=== PATIENT | male | born 1960 | race Two or more races ===

== ENCOUNTER 2018-04-24 21:04 | Emergency (ER) | payer OTHER ==
--- NOTE | 2018-04-24 21:22 | PDOC ---
Rapid Medical Evaluation Chief Complaint: Laceration Time Seen by Provider: 04/24/18 21:18 Medical Evaluation: 04/24/18 21:18 57 year old male with left index finger laceration. sustained cut with a saw that cut cement last tetanus unknown. PE: patient alert ox3. full rom. + sensation to distal end of finger. ~ irregular laceration to PIP. Plan: patient to the ER. xray. tetanus 04/24/18 21:21 Discharge Disposition - Diagnosis Laceration of index finger Qualifiers: Encounter type: initial encounter Damage to nail status: without damage Foreign body presence: without foreign body Laterality: left Qualified Code(s): S61.211A - Laceration without foreign body of left index finger without damage to nail, initial encounter - Referrals - Patient Instructions - Post Discharge Activity
[2018-04-24 21:24] VITALS: BP 159/78; PULSE 79; TEMP 98.4; BMI 27.1
[2018-04-24] MEDS ORDERED: TETANUS AND DIPHTHERIA TOXOID 0.5 ML DISP.SYRIN IM ONE (21:30)
[2018-04-24] MEDS ORDERED: IBUPROFEN 600 MG TABLET (FP) PO ONE ×2 (22:26→22:50)
[2018-04-24] MEDS ORDERED: AMOX TR/POT CLAV 875MG/125MG TABLETS (FP) ONE ×2 (22:46→23:02)
--- NOTE | 2018-04-24 23:00 | PDOC ---
History of Present Illness - General Chief Complaint: Laceration Stated Complaint: LACERATION TO FINGER Time Seen by Provider: 04/24/18 21:18 History Source: Patient Exam Limitations: No Limitations - History of Present Illness Initial Comments: 04/24/18 22:25 Patient came for evaluation of left finger/index finger laceration sustained on a power drill. Occurred: reports: just prior to arrival Severity: reports: mild Pain Location: reports: upper extremity (index finger) Method of Injury: Yes: direct blow Associated Symptoms (Fall): denies symptoms Past History - Travel Traveled outside of the country in the last 30 days: No Close contact w/someone who was outside of country & ill: No - Past Medical History Allergies/Adverse Reactions: Allergies Allergy/AdvReac Type Severity Reaction Status Date / Time No Known Allergies Allergy Verified 04/24/18 21:24 Home Medications: Ambulatory Orders NK [No Known Home Medication] 04/24/18 COPD: No - Suicide/Smoking/Psychosocial Hx Smoking History: Never smoked Have you smoked in the past 12 months: No Information on smoking cessation initiated: No Hx Alcohol Use: No Drug/Substance Use Hx: No Substance Use Type: None Review of Systems - Review of Systems Able to Perform ROS?: Yes Is the patient limited Lithuanian proficient: Yes Constitutional: Yes: Symptoms Reported, See HPI HEENTM: No: Symptoms Reported Musculoskeletal: Yes: Symptoms Reported, See HPI, Joint Pain Integumentary: Yes: Symptoms Reported Neurological: Yes: Symptoms reported, See HPI. No: Numbness All Other Systems: Reviewed and Negative *Physical Exam - Vital Signs Last Vital Signs Temp Pulse Resp BP Pulse Ox 98.4 F 79 18 159/78 100 04/24/18 21:21 04/24/18 21:21 04/24/18 21:21 04/24/18 21:21 04/24/18 21:21 - Physical Exam General Appearance: Yes: Nourished, Appropriately Dressed, Apparent Distress, Mild Distress HEENT: positive: PIPE, Normal ENT Inspection, TMs Normal, Pharynx Normal Neck: positive: Supple Musculoskeletal: positive: Normal Inspection Extremity: positive: Normal Capillary Refill, Normal Range of Motion Integumentary: positive: Normal Color, Other (3cm laceration to dorsum of left index finger across PIP. Range of motion is intact with strong flexion and extension against resistance and sensation is intact distal to injury.) Neurologic: positive: oxygen tank filler II-XII NML intact, Fully Oriented, Alert, Normal Mood/ Affect, Normal Response, Motor Strength 5/5 Procedures - Laceration/Wound Repair Left Finger Wound Length: 2.6 to 5.0 cm Wound Explored: contaminated Wound's Depth, Shape: superficial, linear, stellate, contused tissue Irrigated w/ Saline: Yes Betadine Prep: Yes Anesthesia: 1% Lidocaine Wound Repaired With: Sutures Suture Size/Type: 5:0, nylon Number of Sutures: 8 Layer Closure: No Splint Applied: Yes Progress: 04/24/18 23:14 Laceration is stellate and deep with noted bone at the PIP joint and shredded tissue that appears tendon-like. Bleeding is nonpulsatile. Sutured closed, splinted. 04/24/18 23:14 ED Treatment Course - Medications Given in the ED: ED Medications Discontinued Medications Generic Name Dose Route Start Last Admin Trade Name Freq PRN Reason Stop Dose Admin Tetanus/Diphtheria Toxoids Adsorbed 0.5 ml 04/24/18 21:30 04/24/18 22:21 Decavac IM 04/24/18 21:31 0.5 ml .ONCE ONE Administration Progress Note - Progress Note Progress Note: Deep finger laceration with grinding machine with obvious structural damage to finger. Case was discussed with Dr. Daniel Stone who will see the patient tomorrow in ER and organize probable surgical evaluation ,cleaning and repair. This was discussed with daughter who translated all of the plan with father understands to be NPO-nothing by mouth after midnight, will take Percocet for pain relief tonight, and additional Augmentin and Percocet tablet in the morning and then nothing by mouth to return to this emergency Department around 10 AM for further evaluation. *DC/Admit/Observation/Transfer Diagnosis at time of Disposition: Laceration of index finger Qualifiers: Encounter type: initial encounter Damage to nail status: without damage Foreign body presence: without foreign body Laterality: left Qualified Code(s): S61.211A - Laceration without foreign body of left index finger without damage to nail, initial encounter - Discharge Dispostion Disposition: HOME Condition at time of disposition: Stable Decision to Admit order: No - Referrals Referrals: Tunde Pena MD [Primary Care Provider] - Daniel Brown MD [Staff Physician] - - Patient Instructions Printed Discharge Instructions: DI for Laceration Repair Additional Instructions: Rest, elevate, avoid strenuous activity or heavy lifting until cleared Hand elevated, keep clean and dry, do not change dressing Take Augmentin in AM -7AM Take Percocet tab in AM- 7AM, with small sips of water NOTHING TO EAT OR DRINK AFTER MIDNIGHT Return to the emergency department tomorrow morning at 9:30/10 AM for reevaluation by Dr. Brown That ER admission will be to workup for outpatient surgery for evaluation and surgical cleaning of finger laceration. Please have Dr. Brown paged upon arrival and he will direct plan and orders as necessary - Post Discharge Activity Forms/Work/School Notes: Back to Work
[2018-04-24] MEDS ORDERED: AMOX TR/POT CLAV 875MG/125MG TABLETS (FP) PO ONE (23:10)
== END 2018-04-24 23:12 | disposition home or self-care (01) ==
LOC: JERFT 21:04
PROC: 0JQK0ZZ Repair Left Hand Subcutaneous Tissue and Fascia, Open Approach (ICD-10-PCS; principal; 2018-04-24)
PROC: 3E0234Z Introduction of Serum, Toxoid and Vaccine into Muscle, Percutaneous Approach (ICD-10-PCS; 2018-04-24)
DX: S61.211A Laceration without foreign body of left index finger without damage to nail, initial encounter (principal); W29.8XXA Contact with other powered hand tools and household machinery, initial encounter; Y93.89 Activity, other specified; Y92.89 Other specified places as the place of occurrence of the external cause; Y99.8 Other external cause status
CPT/HCPCS: 73140-TC-LT-FY; 99281-25

== ENCOUNTER 2018-04-25 10:59 | Day surgery (SDC) | payer OTHER ==
[2018-04-25 11:11] VITALS: BMI 26.8
--- NOTE | 2018-04-25 12:17 | PDOC ---
History of Present Illness - General Chief Complaint: Revisit,Wound Recheck Stated Complaint: SUTURE REMOVAL Time Seen by Provider: 04/25/18 11:20 History Source: Patient Exam Limitations: No Limitations - History of Present Illness Initial Comments: 04/25/18 12:16 pt here for follow up to see . Pt sustained laceration to index finger seen in ER last night. Pt has been NPO since midnight states pt. Past History - Past Medical History Allergies/Adverse Reactions: Allergies Allergy/AdvReac Type Severity Reaction Status Date / Time No Known Allergies Allergy Verified 04/25/18 11:06 Home Medications: Ambulatory Orders NK [No Known Home Medication] 04/24/18 COPD: No Other medical history: DENIES. - Suicide/Smoking/Psychosocial Hx Smoking History: Never smoked Have you smoked in the past 12 months: No Hx Alcohol Use: No Drug/Substance Use Hx: No Substance Use Type: None *Physical Exam - Vital Signs Last Vital Signs Temp Pulse Resp BP Pulse Ox 97.4 F L 62 19 119/77 100 04/25/18 11:06 04/25/18 11:06 04/25/18 11:06 04/25/18 11:06 04/25/18 11:06 - Physical Exam General Appearance: Yes: Nourished, Appropriately Dressed HEENT: positive: EOMI, PIPE Extremity: positive: Normal Capillary Refill, Other (left index finger with sutures intact, linear over the dorsal aspect of finger) Integumentary: positive: Normal Color, Dry, Warm Neurologic: positive: Fully Oriented, Alert, Normal Mood/Affect, Normal Response , Motor Strength 5/5 Medical Decision Making - Medical Decision Making 04/25/18 12:37 cc: wound check pt seen by in fast track plan to admit to [facility] for finger laceration repair cbc/cmp done as per pt given understands the plan of care given in faroese translation *DC/Admit/Observation/Transfer Diagnosis at time of Disposition: Laceration of index finger Qualifiers: Encounter type: subsequent encounter Damage to nail status: without damage Foreign body presence: without foreign body Laterality: left Qualified Code(s): S61.211D - Laceration without foreign body of left index finger without damage to nail, subsequent encounter - Discharge Dispostion Decision to Admit order: Yes - Referrals - Patient Instructions - Post Discharge Activity
[2018-04-25 12:39] LABS: HEMATOCRIT 45.4 % (35.4-49); HEMOGLOBIN 15.1 GM/dL (11.7-16.9); MCH 30.1 pg (25.7-33.7); MCHC 33.4 g/dl (32.0-35.9); MEAN CELL VOLUME 90.1 fl (80-96); MEAN PLT VOLUME 8.4 fl (7.5-11.1); PLATELET COUNT 201 K/MM3 (134-434); RBC 5.04 M/mm3 (4.00-5.60); RDW 13.2 % (11.9-15.9); WHITE BLOOD COUNT 8.4 K/mm3 (4.0-10.0)
[2018-04-25 12:58] LABS: ALBUMIN 3.9 g/dl (3.4-5.0); ANION GAP 7 (8-16); BLOOD UREA NITROGEN 18 mg/dL (7-18); CALCIUM 8.8 mg/dL (8.5-10.1); CHLORIDE 100 mmol/L (98-107); CO2 29 mmol/L (21-32); GLUCOSE,RANDOM 147 mg/dL (74-106); POTASSIUM 4.6 mmol/L (3.5-5.1); SGPT/ALT 46 U/L (12-78); SODIUM 136 mmol/L (136-145)
[2018-04-25 13:04] LABS: ALK PHOS 114 U/L (45-117); BILIRUBIN,TOTAL 0.6 mg/dL (0.2-1.0); SGOT/AST 29 U/L (15-37); TOT PROT 7.5 g/dl (6.4-8.2)
[2018-04-25] MEDS ORDERED: IBUPROFEN 600 MG TABLET (FP) PO PRN ×2 (13:43→16:11)
[2018-04-25] MEDS ORDERED: ONDANSETRON 4 MG/2 ML VIAL IVPUSH PRN ×3 (13:43→16:08)
--- NOTE | 2018-04-25 13:43 | HP ---
Admitting History and Physical - Admission Chief Complaint: left index finger laceration History of Present Illness: 57 yo RHD male with no significant PMH presents with a left index finger laceration. sustained cut with a power drill that cut cement at home. last tetanus yesterday. normal sensation to distal end of finger ~ irregular laceration to PIP. We were asked to assess and treat History Source: Patient, Medical Record Limitations to Obtaining History: No Limitations - Smoking History Smoking history: Never smoked Have you smoked in the past 12 months: No - Alcohol/Substance Use Hx Alcohol Use: No - Social History History of Recent Travel: No Home Medications - Allergies Allergies/Adverse Reactions: Allergies Allergy/AdvReac Type Severity Reaction Status Date / Time No Known Allergies Allergy Verified 04/25/18 11:06 - Home Medications Home Medications: Ambulatory Orders NK [No Known Home Medication] 04/24/18 Review of Systems - Review of Systems Constitutional: denies: Chills, Fever Eyes: denies: Blurred Vision, Recent Change in Vision HENT: denies: Difficult Swallowing, Throat Pain Neck: denies: Lumps, Tenderness Cardiovascular: denies: Chest Pain Respiratory: denies: Cough, SOB Gastrointestinal: denies: Abdominal Pain, Constipation, Diarrhea Genitourinary: denies: Discharge, Dysuria Musculoskeletal: denies: Back Pain, Muscle Pain, Muscle Weakness Integumentary: denies: Lesions, Rash Neurological: denies: Seizure, Syncope Endocrine: denies: Unexplained Weight Gain, Unexplained Weight Loss Hematology/Lymphatic: denies: Easily Bruised, Excessive Bleeding Psychiatric: denies: Anxiety, Depression Physical Examination Vital Signs: Vital Signs Temperature 97.4 F L 04/25/18 11:06 Pulse Rate 62 04/25/18 11:06 Respiratory Rate 19 04/25/18 11:06 Blood Pressure 119/77 04/25/18 11:06 O2 Sat by Pulse Oximetry (%) 100 04/25/18 11:06 Vital Signs Period Temp Pulse Resp BP Sys/Avery Pulse Ox Last 24 Hr 97.4 F 60-62 18-19 119-123/77-77 99-100 Constitutional: Yes: Well Nourished, No Distress, Calm Eyes: Yes: Conjunctiva Clear, Ptosis HENT: Yes: Atraumatic, Normocephalic Neck: Yes: Supple, Trachea Midline Cardiovascular: Yes: Regular Rate and Rhythm, S1, S2 Respiratory: Yes: Regular, CTA Bilaterally Gastrointestinal: Yes: Normal Bowel Sounds, Soft. No: Tenderness Renal/: No: CVA Tenderness - Left, CVA Tenderness - Right Musculoskeletal: No: Back Pain, Muscle Pain, Muscle Weakness Extremities: Yes: Other (left index finger 5 cm dorsal lacertion.). No: Cool, Cyanosis Edema: No Peripheral Pulses WNL: Yes Peripheral Pulses: Left Radial: 2+, Right Radial: 2+, Left Doralis Pedis: 2+, Right Dorsalis Pedis: 2+ Wound/Incision: Yes: Clean/Dry, Well Approximated, Sutures Intact, Other (left index finger). No: Draining, Reddened, Bleeding Neurological: Yes: Alert, Oriented Psychiatric: Yes: Alert, Oriented Labs: CBC, BMP 04/25/18 12:29 04/25/18 12:29 Imaging - Results X-ray: Report Reviewed, Image Reviewed (left index finger) Problem List - Problems (1) Extensor tendon laceration of finger with open wound Assessment/Plan: 57 yo male PMH laceration left index finger with power drill involving extensor tendon NPO and IVF hydration IV antibiotics Discussed with patient risks, benefits and alternatives of left index finger laceration repair, repair of extensor tendon, including but not limited to bleeding, infection, injury to adjacent structures, loss of function, amputation , need for further procedures, ; alternatives include antibiotics, delayed or no surgery - risks of this include failure of nonoperative therapy, loss of fucnction or amputation, sepsis, recurrence, .Patient desires to proceed with operation - will take to OR for above. Informed consent signed for same. Code(s): S66.529A - LACERAT INTRNS MUSC/FASC/TEND UNSP FNGR AT WRS/HND LV, INIT ; S61.209A - UNSP OPEN WOUND OF UNSP FINGER W/O DAMAGE TO NAIL, INIT Qualifiers: Encounter type: subsequent encounter Qualified Code(s): S66.529D - Laceration of intrinsic muscle, fascia and tendon of unspecified finger at wrist and hand level, subsequent encounter; S61.209D - Unspecified open wound of unspecified finger without damage to nail, subsequent encounter (2) Laceration of index finger Code(s): S61.218A - LACERATION W/O FB OF FINGER W/O DAMAGE TO NAIL, INIT Qualifiers: Encounter type: subsequent encounter Damage to nail status: without damage Foreign body presence: with foreign body Laterality: left Qualified Code( s): S61.221D - Laceration with foreign body of left index finger without damage to nail, subsequent encounter (3) Laceration of index finger of left hand without complication Code(s): S61.211A - LACERATION W/O FB OF L IDX FNGR W/O DAMAGE TO NAIL, INIT Qualifiers: Encounter type: subsequent encounter Qualified Code(s): S61.211D - Laceration without foreign body of left index finger without damage to nail, subsequent encounter (4) Contact with powered drill as cause of accidental injury Code(s): W29.8XXA - CNTCT WITH OTHER POWERED HAND TOOLS AND HOUSEHOLD MACH, INIT
[2018-04-25] MEDS ORDERED: LACTATED RINGERS SOLUTION 1,000 ML IV SCH ×2 (13:45→15:00)
[2018-04-25] MEDS ORDERED: BUPIVACAINE HCL/PF 0.5% (5MG/ML) 10 ML VIAL ONE (14:34)
[2018-04-25] MEDS ORDERED: oxyCODONE HCL 5 MG TABLET PO PRN (14:51)
[2018-04-25] MEDS ORDERED: MIDAZOLAM HCL 2 MG/2 ML SINGLE DOSE VIAL ONE ×2 (15:06)
[2018-04-25] MEDS ORDERED: BUPIVACAINE HCL/PF (5 MG/ML) 30 ML VIAL IJ ONE (15:10)
[2018-04-25] MEDS ORDERED: ceFAZolin SODIUM 1 GM VIAL ONE (15:15)
--- NOTE | 2018-04-25 15:47 | OP ---
Operative Note - Note: Operative Date: 04/25/18 Operation: irrigation and debridement of left index finger, repair of extensor tendon 50% laceration zone 2 Findings: 50% laceration zone 2 extensor tendon over middle phalanx Post-Operative Diagnosis: Same as Pre-op Surgeon: Daniel Brown Anesthesiologist/REFRIGERATING OILER: Houston Rodriguez Anesthesia: General, Local (0.5% marcaine 10ml digital block), MAC Estimated Blood Loss (mls): 2 Instrument used (Debridements only): scalple and scissor Fluid Volume Replaced (mls): 400 Operative Report Dictated: Yes
--- NOTE | 2018-04-25 15:56 | DS ---
Physical Examination Vital Signs: Vital Signs Temperature 97.4 F L 04/25/18 11:06 Pulse Rate 60 04/25/18 14:37 Respiratory Rate 18 04/25/18 14:37 Blood Pressure 123/77 04/25/18 14:37 O2 Sat by Pulse Oximetry (%) 99 04/25/18 14:37 Constitutional: Yes: Well Nourished, No Distress, Calm Eyes: Yes: Conjunctiva Clear, EOM Intact HENT: Yes: Atraumatic, Normocephalic Neck: Yes: Supple, Trachea Midline Cardiovascular: Yes: Regular Rate and Rhythm, S1, S2 Respiratory: Yes: Regular, CTA Bilaterally Gastrointestinal: Yes: Normal Bowel Sounds, Soft ...Rectal Exam: Yes: Deferred Musculoskeletal: No: Muscle Pain, Muscle Weakness Extremities: No: Cool, Cyanosis Edema: No Peripheral Pulses WNL: Yes Peripheral Pulses: Left Radial: 2+, Right Radial: 2+, Left Doralis Pedis: 2+, Right Dorsalis Pedis: 2+ Wound/Incision: Yes: Clean/Dry, Well Approximated, Sutures Intact, Dressing Dry and Intact Neurological: Yes: Alert, Oriented Psychiatric: Yes: Alert, Oriented Labs: CBC, BMP 04/25/18 12:29 04/25/18 12:29 Discharge Summary Reason For Visit: LACERATION OF INDEX FINGER Current Active Problems Contact with powered drill as cause of accidental injury (Acute) Extensor tendon laceration of finger with open wound (Acute) Laceration of index finger (Acute) Laceration of index finger of left hand without complication (Acute) Procedures: Principal: left index finger irrigation and debridement, repair of extensor tendon Hospital Course: admitted for ambulatory procedure. uneventful debridement and repair. stable for discharge home Condition: Improved - Instructions Diet, Activity, Other Instructions: Postoperative instructions: You had a irrigation and debridement of extensor tendon left index finger on 04/25/[address] Daniel Brown of [facility]. Activity: Resume your usual activities gradually, but no heavy exertion or lifting more than 10-15 pounds for 4-6 weeks. please keep bandage clean and dry for 1 week, until follow up appointment. Eat lightly at first, but advance to your usual diet as tolerated. Pain: For pain, you may use and alternate Tylenol (acetaminophen) and/or ibuprofen every 6 hours each as needed; this means that you can take one OR the other at 3-hour intervals. If you are prescribed a Tylenol/narcotic combination for severe pain, use it instead of plain Tylenol as needed and switch back when your pain starts decreasing. Do not take more than 4000mg of acetaminophen in a day. Take medications as prescribed or indicated on the labeling. Follow-up: Call Dr. Brown' office at [phone] to make your postop appointment (Saturday 1 weeks after surgery as advised). Clinic is held in the [facility] on the first floor of . Call the office if you have: * increasing pain not responsive to pain medication * fever of 101F or higher * unusual or increasing bleeding or drainage from wounds * increasing redness or swelling at wound sites Also, see your primary medical doctor within 1-2 weeks. Referrals: Daniel Brown MD [Staff Physician] - Disposition: HOME - Home Medications Comprehensive Discharge Medication List: Ambulatory Orders Amox-Tr/K Cl [Augmentin - 875Mg Tablet] 1 tab PO BID #14 tablet 04/25/18 Oxycodone HCl/Acetaminophen [Percocet 5/325 -] 1 tab PO Q6H #40 tab MDD 5
[2018-04-25 16:34] VITALS: TEMP 97.8
[2018-04-25 17:17] VITALS: BP 115/71; PULSE 65
--- NOTE | 2018-04-26 11:57 | OP ---
DATE OF OPERATION: 04/25/2018 PREOPERATIVE DIAGNOSIS: Left index finger laceration. POSTOPERATIVE DIAGNOSIS: Left index finger dorsal laceration, zone II extensor tendon 50% laceration. PROCEDURE: Irrigation and debridement of left index finger repair extensor tendon 50% laceration, zone II. ATTENDING SURGEON: Daniel Brown MD ANESTHESIOLOGIST: Houston Rodriguez MD ANESTHESIA TYPE: General with local. Local consisted of 0.5% Marcaine. A total of 10 mL given in a digital block fashion. ESTIMATED BLOOD LOSS: 2 mL TOURNIQUET: None. INSTRUMENTS USED FOR DEBRIDEMENT: Scalpel and scissors. INTRAVENOUS FLUID ADMINISTERED DURING THE CASE: Crystalloid 400 mL. INDICATION: Patient is presenting 1 day after sustaining an accidental drill injury to the left index finger on the dorsum involving the extensor tendon. He was counseled to return for definitive management. He was seen in the emergency department and noted to have a laceration approximately 5 cm in length over the proximal interphalangeal joint of the index finger on the left hand. There was some tendon involvement and foreign debris. He was counseled regarding risks, benefits, and alternatives to surgical exploration and repair, signed informed consent, and was taken for the procedure. DESCRIPTION OF PROCEDURE: Patient was brought to the operating room, placed in supine position on the operating room table with the left arm extended at 90 degrees perpendicular to the body's axis at the shoulder. Bilateral lower extremities had SCDs placed. Patient received intravenous antibiotics prior to surgery, 2 g of Ancef. Patient was then prepped and draped into a standard surgical field after sedation was administered. Supplemental oxygen was provided. After a formal timeout identifying the operative site, digit as the left index finger, with all parties in agreement, we began with first opening the closed laceration by removing sutures using tenotomy scissors and pickup. Once the incision was opened, a small amount of venous ooze was noted, and bipolar cautery was used to control the dorsal bleeding venous plexus of the digit as it crossed the PIP joint. It was clear at this point that there was involvement, a 50% laceration along the ulnar border of the extensor tendon in zone II. This was approximated with Ethibond size 4-0 in figure-of-8 fashion to approximate the lacerated edges, burying the knot. Tissue was debrided from the skin edges to allow for adequate closure. Debris was thoroughly irrigated from the site and debrided with scissors and scalpel. These were metallic-appearing black fibers from the implement. Once the site was clear, it was thoroughly irrigated 1 final time. At which point, the decision was made to then close the skin. Skin was approximated using 4-0 nylon in interrupted fashion along the length of the laceration to the freshly-debrided edges of vital tissue. The skin was cleaned. Sterile dressings were placed including Xeroform, 4 x 4, and a rigid dressing splint for the digit. The patient was awoken from general anesthesia, having tolerated the procedure well, was given instructions to follow up in a period of 1 week for re-evaluation, was provided with a prescription for antibiotics and pain medication. MD RENETTA Manzano/[id number]
== END 2018-04-25 17:17 | disposition home or self-care (01) ==
LOC: JER 10:59 → JERFT 10:59 → JASUSAT 12:17
PROC: 0LQ80ZZ Repair Left Hand Tendon, Open Approach (ICD-10-PCS; principal; 2018-04-25 14:30)
DX: S66.321A Laceration of extensor muscle, fascia and tendon of left index finger at wrist and hand level, initial encounter (principal); X58.XXXA Exposure to other specified factors, initial encounter; Y93.9 Activity, unspecified; Y92.89 Other specified places as the place of occurrence of the external cause; Y99.9 Unspecified external cause status
CPT/HCPCS: 36415; 80053; 85027; 94760; 99282-25